=== PATIENT | female | born 1980 | race Caucasian/White ===

== ENCOUNTER 2022-03-31 13:03 | Outpatient (CLI) | payer OTHER, MEDICARE, SELFPAY ==
--- NOTE | ~2022-03-31 | MMUS_ITS ---
EXAMINATION: MM diagnostic jefe BI w fariba, US breast BI limited HISTORY: Palpable lump in the upper inner quadrant of the right breast TECHNIQUE: Craniocaudal, mediolateral, and mediolateral oblique 3-D tomosynthesis images of the reno ts were performed and synthetic 2-D images were generated. CAD analysis was submitted and interpreted . High resolution limited bilateral breast ultrasound was performed. COMPARISON: No prior mammogram is currently available for comparison. BREAST PARENCHYMAL COMPOSITION: The breasts are heterogeneously dense, which may obscure small masses . FINDINGS: MAMMOGRAPHIC FINDINGS: Right breast: No mammographic correlate is identified for the reported palpable abnormality of concer n in the right breast. No suspicious mass, calcification, or architectural distortion are identified. There is a fat-containing mass in the upper outer quadrant of the breast with the appearance of an i ntramammary lymph node. Left breast: There is a 5 mm oval, circumscribed, low density mass in the middle third of the upper b reast at the 12:00 location 6 cm from the nipple. No suspicious architectural distortion or calcifica tion are identified. ULTRASOUND: Right breast: There are small cysts of the right breast which measure up to 10 mm. No suspicious sono graphic correlate is identified for the reported palpable abnormality of concern. Left breast: There is a 6 mm cyst of the left breast at the 12:00 location 2 cm from the nipple. No s uspicious cystic or solid mass is identified. IMPRESSION: 1. No specific mammographic or sonographic correlate is identified for the reported palpable abnormal ity of concern. Further evaluation at this time should be based on clinical assessment. Continued fol low-up physical examination is recommended. 2. Recommend routine screening mammography in one year. BI-RADS Category 2: Benign finding(s). Reviewed, dictated and finalized at location A. IMPRESSION: 1. No specific mammographic or sonographic correlate is identified for the repo rted palpable abnormality of concern. Further evaluation at this time should be based on clinical assessment. Continued follow-up physical examination is kalin mmended. 2. Recommend routine screening mammography in one year. BI-RADS Category 2: Benign finding(s).
== END 2022-03-31 13:04 | disposition home or self-care (01) ==
LOC: ANHIMG 13:12
PROVIDERS: Visit Provider Obstetrics & Gynecology
DX: N63.12 Unspecified lump in the right breast, upper inner quadrant (principal); N60.01 Solitary cyst of right breast
CPT/HCPCS: 76642; 77062; 77066; G0279

== ENCOUNTER → 2022-05-07 09:06 | Outpatient (CLI) | payer OTHER, MEDICARE, SELFPAY ==
--- NOTE | ~2022-05-07 | US_ITS ---
EXAMINATION: US abdomen limited DATE: 05/07/2022 09:30 INDICATION: Left upper quadrant pain TECHNIQUE: Multiple grayscale and Doppler ultrasound images of the abdomen were obtained. COMPARISON: None available FINDINGS: The head and body of the pancreas are normal. The pancreatic tail is obscured by bowel gas. The spleen is normal in appearance and measures 8.5 cm. Left kidney is unremarkable and measures 10. 4 x 5.0 x 5.3 cm. There is no hydronephrosis. No sonographic correlate is identified in the area of t he patient's pain. IMPRESSION: 1. No sonographic correlate for the patient's symptoms. Reviewed, dictated and finalized at location B. Y MIXER
== END ==
PROVIDERS: PCP Internal Medicine; Visit Provider Internal Medicine
DX: R10.12 Left upper quadrant pain (principal)
CPT/HCPCS: 76705

== ENCOUNTER 2022-05-07 09:27 | Emergency (ER) | payer OTHER, MEDICARE, SELFPAY ==
--- NOTE | ~2022-05-07 | XR_ITS ---
EXAMINATION: XR ankle LT min 3V DATE: 05/07/2022 10:06 INDICATION: Left ankle pain TECHNIQUE: Anteroposterior, lateral, mortise, and additional oblique view of the ankle were obtained. COMPARISON: None. FINDINGS: Bone alignment is normal. No acute fracture is identified. There is mild irregularity in th e medial aspect of the distal fibula which may reflect prior injury. No osteochondral lesion is ident ified. There is mild ankle soft tissue swelling. IMPRESSION: 1. Mild ankle soft tissue swelling without acute osseous abnormality. Reviewed, dictated and finalized at location B. 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
--- NOTE | 2022-05-07 09:31 | ED.LOWEXIN ---
HPI - Extremity Injury (Lower) General Chief Complaint: Extremity Injury, Lower Stated Complaint: L ANKLE PAIN Time Seen by Provider: 05/07/22 10:12 Source: patient and RN notes reviewed Mode of arrival: ambulatory Limitations: no limitations History of Present Illness HPI Narrative: 42-year-old female presents with concern for left ankle pain for 1 week. Reports 1 week ago she rolled the ankle. She reports she is using ice, elevation, ibuprofen, Tylenol. She reports she continues to have swelling, pain and is limping. She reports she has broken ankle in the past. MD complaint: ankle injury Related Data Home Medications Medication Instructions Recorded Confirmed atorvastatin 10 mg tablet 10 mg PO DAILY 03/19/22 03/19/22 buspirone 10 mg tablet 10 mg PO BID 03/19/22 03/19/22 desvenlafaxine succinate 100 mg 100 mg PO DAILY 03/19/22 03/19/22 tablet,extended release 24 hr (Pristiq) dextroamphetamine-amphetamine 30 30 mg PO DAILY 03/19/22 03/19/22 mg tablet (Adderall) metoprolol succinate 25 mg 12.5 mg PO BID 03/19/22 03/19/22 tablet,extended release 24 hr ropinirole 0.5 mg tablet 0.5 mg PO BID 03/19/22 03/19/22 trazodone 100 mg tablet 100 mg PO QHS PRN 03/19/22 03/19/22 Allergies Allergy/AdvReac Type Severity Reaction Status Date / Time [penicillan Allergy Severe Hives Uncoded 05/07/22 09:46 Review of Systems Review of Systems: CONSTITUTIONAL: Denies malaise, chills, sweats, or fever. SKIN: Denies rash or itching, open skin, laceration, abrasion, redness, warmth MUSCULOSKELETAL: Reports left ankle pain and swelling NEUROLOGIC: Denies numbness, weakness All systems reviewed & are unremarkable except as noted in HPI and below PMFSH Past Medical History Medical History (Updated 05/07/22 @ 10:18 by Aliza Saxena NP) ADHD Anxiety High blood cholesterol Hypertension Major depression Surgical History Surgical History H/O lumpectomy History of endometrial ablation Social History Social History (Updated 09/22/22 @ 09:42 by MICK Abdi Smoking status: Never smoker Alcohol intake: current Substance use: current Substance use type: marijuana Gender identity (if verbalized by the patient): Female Comments At time of signature, agree with nursing past medical, surgical, social and family history. There is no relevant family history pertinent to the presenting complaint Exam Narrative: GENERAL: Well-appearing, well-nourished, and in no acute distress. HEAD: Normocephalic, atraumatic. EYES: PERRLA, conjunctivae clear NECK: Supple. CHEST: Speaks in full sentences. No respiratory distress. HEART: Regular rate and rhythm. Normal and equal peripheral pulses. EXTREMITIES: Left ankle has grossly normal strength and sensation, grossly normal range of motion. Mild lateral malleolus edema without ecchymosis. 5/5 strength with ankle in digit flexion and extension. Normal sensation with sensitivity to light touch and pain. Lateral ankle tenderness. No open wounds, no skin tenting, no devitalized tissue or atrophy, no trophic changes, no obvious deformity, alignment normal, nearby joints and structures intact. Distal pulses palpable and equal bilaterally, skin warm, dry, pink. Capillary refill less than 3 seconds. SKIN: Warm, dry, no rash. NEURO: Alert and oriented x3. PSYCH: Normal mood and affect Course Course Emergency Course: Patient is aware of diagnosis, understands and agrees to treatment plan. Anticipatory guidance given. Patient agrees to follow-up as directed and is aware of reasons to seek care at the emergency department. Portions of this record may have been created with voice recognition software Level of Care: Express Care Visit Vital Signs Vital signs: Reviewed. MDM - Extremity Injury (Lower) MDM Narrative Medical decision making narrative: Patients injury and pain is consistent with musculoskeletal etiology. No s
[2022-05-07 09:52] VITALS: BP 149/86; PULSE 66; RESP 20; TEMP 36.9; O2SAT 99
== END 2022-05-07 10:22 | disposition home or self-care (01) ==
PROVIDERS: Emergency Provider Nurse Practitioner; PCP Internal Medicine
DX: S93.402A Sprain of unspecified ligament of left ankle, initial encounter (principal); S96.912A Strain of unspecified muscle and tendon at ankle and foot level, left foot, initial encounter; X50.9XXA Other and unspecified overexertion or strenuous movements or postures, initial encounter; X50.0XXA Overexertion from strenuous movement or load, initial encounter; E78.00 Pure hypercholesterolemia, unspecified; I10 Essential (primary) hypertension; F90.9 Attention-deficit hyperactivity disorder, unspecified type; F41.9 Anxiety disorder, unspecified; F32.9 Major depressive disorder, single episode, unspecified
CPT/HCPCS: 73610; 99213; G0463

== ENCOUNTER → 2022-07-29 14:48 | Outpatient (CLI) | payer OTHER, MEDICARE, SELFPAY ==
--- NOTE | ~2022-07-29 | MR_ITS ---
MRI of the right hip Clinical history: Posttraumatic osteoarthritis Technique: Coronal T1-weighted, T2-weighted, and proton-density fat-sat images, and axial T1-weighted and proton-density fat-sat images were acquired through the pelvis. Coronal T2-weighted images and c oronal, axial, and sagittal proton-density fat-sat images were acquired through the left hip. Findings: There is no fracture, avascular necrosis, or transient osteoporosis of either hip. There is focal subchondral cystic change at the superior aspect of the right femoral head. Number signals in the proximal femora and visual is probable bones are otherwise unremarkable. There is probable mild t o moderate diffuse chondromalacia along the superior aspect of the right hip joint. No significant os teophyte formation identified. Probable minimal chondromalacia changes of the left hip joint diffusel y, without osteophyte formation. No joint effusion seen. No definite right acetabular labral tear elizabeth ntified. Bilateral SI joints are unremarkable. Musculature about the pelvis and right hip is unremarkable. No muscle atrophy or edema identified. Vi sualized tendons are intact. No fluid collection or soft tissue mass seen. IMPRESSION: No acute abnormality. Mild degenerative change of the bilateral hips, right worse than left, as detailed above. Reviewed, dictated and finalized at location . [employer] IMPRESSION: No acute abnormality. Mild degenerative change of the bilateral hips, right worse than left, as detai led above.
== END ==
PROVIDERS: PCP Internal Medicine
DX: M16.51 Unilateral post-traumatic osteoarthritis, right hip (principal); M16.52 Unilateral post-traumatic osteoarthritis, left hip
CPT/HCPCS: 73721